=== PATIENT | male | born 1950 | race Caucasian/White ===

== ENCOUNTER → 2018-10-04 | Outpatient (CLI) | payer MEDICARE, OTHER ==
--- NOTE | 2018-10-04 15:14 | MR ---
EXAMINATION TYPE: MR hip LT wo con DATE OF EXAM: 10/04/2018 COMPARISON: None HISTORY: Left hip pain Standard multiplanar, multisequence MRI departmental protocol Multiplanar, multisequence images of the left hip were acquired. FINDINGS: There is left hip nailing noted. The femoral heads and femoral necks have normal signal pat tern without evidence of edema. There is no evidence of a fracture. The pelvic ring is intact. Sacroi liac joints appear normal. There is no free fluid in the pelvis. Prostate is moderately enlarged and measures 6.5 cm. There is asymmetric enlargement of the left side of the prostate gland extending sup eriorly into the urinary bladder. There is mild acetabular spurring. I see no focal bone destruction. IMPRESSION: Previous left proximal femur nailing apparently fixing the intertrochanteric femur. No acute fracture . No evidence of hip dysplasia. No evidence of avascular necrosis. Asymmetric enlarged prostate gland consistent with tumor.
== END | disposition home or self-care (01) ==
LOC: RADMRIMAIN 12:55
PROVIDERS: ATTEND Internal Medicine
DX: M25.552 Pain in left hip (principal)

== ENCOUNTER → 2021-03-25 | Outpatient (CLI) | payer MEDICARE, OTHER ==
--- NOTE | 2021-03-26 04:05 | MR ---
EXAMINATION TYPE: MR brain wo con DATE OF EXAM: 03/25/2021 COMPARISON: None HISTORY: Dysequilibrium, fall 2014 Multiplanar multiecho imaging of the brain without contrast. There is some cerebral cortical atrophy. There is no mass effect nor midline shift. Diffusion images show no evidence of an acute infarct. There are some white matter high signal foci in the posterior temporal lobes and occipital lobes bila terally. Total number is approximately 15 and these measure up to 6 mm. There are a few tiny foci of increased signal in the parietal lobe and frontal lobe white matter measuring up to 3 mm. Cerebellum is intact. Brainstem shows a single 3 mm focus of increased signal within the central jp on the T2 and FLAIR images. The corpus callosum is intact. Sella turcica appears normal. There is no evidence of orbital mass. IMPRESSION: Cerebral atrophy. White matter high signal foci concentrated mainly in the posterior temporal and occ ipital lobes more consistent with microvascular ischemia. I do not see a pattern suggestive of demyel inating disease. Cerebral atrophy. No evidence of cortical infarct.
== END | disposition home or self-care (01) ==
LOC: RADMRIMAIN 14:07
PROVIDERS: ATTEND Internal Medicine
DX: G31.9 Degenerative disease of nervous system, unspecified (principal)
CPT/HCPCS: 70551

== ENCOUNTER → 2021-05-01 | Outpatient (CLI) | payer MEDICARE, OTHER ==
--- NOTE | 2021-05-01 15:34 | US ---
EXAMINATION TYPE: US carotid duplex BILAT DATE OF EXAM: 05/01/2021 COMPARISON: NONE CLINICAL HISTORY: I65.23 OCCLUSION AND STENOSIS ZEE CAROTID ARTERIES. Pt states episodes of dizziness EXAM MEASUREMENTS: RIGHT: Peak Systolic Velocity (PSV) cm/sec ----- Right CCA: 87.0 ----- Right ICA: 97.8 ----- Right ECA: 118 ICA/CCA ratio: 1.1 RIGHT: End Diastole cm/sec ----- Right CCA: 17.0 ----- Right ICA: 27.6 ----- Right ECA: 11.6 LEFT: Peak Systolic Velocity (PSV) cm/sec ----- Left CCA: 94.2 ----- Left ICA: 81.0 ----- Left ECA: 81.6 ICA/CCA ratio: 0.9 LEFT: End Diastole cm/sec ----- Left CCA: 20.4 ----- Left ICA: 20.4 ----- Left ECA: 12.0 VERTEBRALS (direction of flow): Right Vertebral: Antegrade Left Vertebral: Antegrade Rhythm: Normal No significant stenosis seen bilaterally IMPRESSION: No significant flow-limiting stenosis. Criteria for Assigning % of Stenosis / Diameter reduction (Estimation based on the indirect measurements of the internal carotid artery velocities (ICA PSV). 1. Normal (no stenosis)=ICA PSV < 125 cm/s: ratio < 2.0: ICA EDV<40 cm/s. 2. Less than 50% stenosis=ICA PSV < 125 cm/s: ratio < 2.0: ICA EDV<40 cm/s. 3. 50 to 69% stenosis=ICA PSV of 125 to 230 cm/s: ration 2.0 ? 4.0: ICA EDV 40-100 cm/s. 4. Greater than 70% stenosis to near occlusion= ICA PSV > 230 cm/s: ratio > 4.0: ICA EDV > 100 cm/s. 5. Near occlusion= ICA PSV velocities may be low or undetectable: variable ratio and ICA EDV. 6. Total occlusion=unable to detect flow.
== END | disposition home or self-care (01) ==
LOC: RADUSWWP 13:51
PROVIDERS: ATTEND Psychiatry & Neurology Neurology
DX: R42 Dizziness and giddiness (principal)
CPT/HCPCS: 93880

== ENCOUNTER → 2021-05-21 | Outpatient (CLI) | payer MEDICARE, OTHER ==
--- NOTE | 2021-05-21 11:15 | MR ---
EXAMINATION TYPE: MR angio head wo con DATE OF EXAM: 05/21/2021 COMPARISON: MRI of the brain March 25, 2021 HISTORY: Unsteady gait. TECHNIQUE: Time of flight images focusing on the [place] were performed without contrast.. 2-D and 3-D postprocessing imaging is performed on an independent workstation. FINDINGS: Codominant vertebral arteries patent to the basilar junction. Some tortuous course and diff use prominence without focal aneurysm or significant stenosis. Hypoplastic bilateral posterior commun icating arteries. Nonvisualized or hypoplastic anterior communicating artery. No significant focal stenosis or aneurysm in the anterior circulation. IMPRESSION: No focal aneurysm or significant stenosis at the level of the [place] of [place].
== END | disposition home or self-care (01) ==
LOC: RADMRIMAIN 10:23
PROVIDERS: ATTEND Internal Medicine
DX: R26.81 Unsteadiness on feet (principal)
CPT/HCPCS: 70544